=== PATIENT | female | born 1995 | race Caucasian/White ===

== ENCOUNTER → 2016-11-22 | Outpatient (CLI) | payer BC ==
[~2016-11-22] MED LIST: DCS100C PO; HYDR-3454 PO; LUBI8CAP2 PO; NAPR-243 PO; POLY17PO23 PO; RANI75TA30 PO
--- NOTE | 2016-11-22 17:44 | Diagnostic Imaging Report ---
INDICATION: Pelvic pain with positive test. COMPARISON: None available. TECHNIQUE: Transabdominal and transvaginal grayscale and color Doppler imaging of the pelvis was performed. FINDINGS: The uterus measures 7.5 x 3.8 x 4.4 cm. No suspicious myometrial mass. The endometrium is thickened and fairly homogeneous in echogenicity. It measures up to 2 cm. There is no intrauterine gestational sac identified. The right ovary measures 3.2 x 3.0 x 1.9 cm. The left ovary measures 3.0 x 2.7 x 2.0 cm. Blood flow seen in both ovaries by color Doppler and spectral duplex imaging. There is a trace amount of simple-appearing free pelvic fluid. No cystic adnexal mass/paraovarian mass to suggest ectopic . IMPRESSION: 1. No intrauterine /gestational sac. However, a very early gestation could be below the sensitivity of ultrasound at this time. 2. No evidence of ectopic within the pelvis. 3. Recommend correlation with beta hCG levels and if necessary, short-term followup pelvic ultrasound in 2-3 days to reassess for potential gestational sac. Dictated by: Dictated on workstation # [id number]
== END ==
LOC: RAD 16:25
PROVIDERS: ATTEND Nurse Practitioner Family
DX: R10.2 Pelvic and perineal pain (principal)
CPT/HCPCS: 76801; 76817

== ENCOUNTER → 2016-11-28 | Outpatient (CLI) | payer BC ==
--- NOTE | 2016-11-28 18:10 | Diagnostic Imaging Report ---
EXAMINATION: OB ultrasound. INDICATION: Pelvic pain. FINDINGS: The previous OB ultrasound exam performed on 11/22/2016 failed to show any sign of a gestational sac within the uterus. On this exam, there is now a very small hypoechoic area within the endometrium. The measurements of this hypoechoic area would correspond to a roughly 4 week . There is no sign of an embryonic pole. Whether this finding is related to an early live or to a blighted ovum is not certain. Correlation with the patient's beta-hCG levels would be recommended. There is no solid pelvic mass or free fluid collection noted. The ovaries are unremarkable. IMPRESSION: 1. There is now a small hypoechoic area within the endometrium of the uterus. Whether this is related to an early gestational sac or to a blighted ovum is not certain. Recommendations as above. 2. There is no acute pelvic abnormality identified. Dictated by: Dictated on workstation # [id number]
== END ==
LOC: RAD 14:39
PROVIDERS: ATTEND Nurse Practitioner Family
DX: Z32.00 Encounter for pregnancy test, result unknown (principal)
CPT/HCPCS: 76817

== ENCOUNTER → 2017-03-27 | Outpatient (CLI) | payer BC, OTHER ==
[~2017-03-27] MED LIST changes: +DOCU100C37 PO; +Hydrocodone Bit/Acetaminophen PO; +IBUP-1773 PO
--- NOTE | 2017-03-27 14:10 | Diagnostic Imaging Report ---
INDICATION: anatomical survey. TECHNIQUE: Multiple real-time grayscale images were obtained over the gravid uterus. COMPARISON: 11/28/2016. FINDINGS: Transabdominal sonographic evaluation of the gravid uterus was performed. Single live intrauterine at 23 weeks 2 days by today's sonographic measurements. EDC by today's ultrasound is 07/22/2017. presentation is breech. Placenta is located anteriorly. There is questionable low-lying placenta noted at the beginning of the exam with the placental margin 2 cm from the internal cervical os, however, at the end of the exam, the placental edge appeared more than 5 cm away from the cervix. gender is male. There is borderline bilateral renal pelviectasis measuring 0.5 cm bilaterally. Otherwise, the kidneys, bladder, stomach, brain, four-chamber heart, three-vessel cord and insertion, spine, and extremities appear within normal limits. Biometrical measurements are as follows: Biparietal 5.57 cm, age 23 weeks 0 days. Head circumference 21.30 cm, age 23 weeks 3 days. Abdominal circumference 18.22 cm, age 23 weeks 1 days. Femur length 4.10 cm, age 23 weeks 3 days. Sonographic estimate age: 23 weeks 2 days. Sonographic estimated date of delivery: 07-22-17. Estimated Weight: 569 gm (+/- 83 gm). LMP percentile: 98%. heart rate: 155 beats per minute. number: 1 of 1. IMPRESSION: 1. Single live intrauterine at 23 weeks 2 days by sonographic measurements. 2. Borderline bilateral renal pelviectasis of uncertain etiology. Recommend continued sonographic followup. Dictated by: Dictated on workstation # [id number]
== END ==
LOC: RAD 12:02
PROVIDERS: ATTEND Family Medicine
DX: Z34.02 Encounter for supervision of normal first pregnancy, second trimester (principal); Z3A.23 23 weeks gestation of pregnancy
CPT/HCPCS: 76805

== ENCOUNTER → 2017-04-28 | Outpatient (CLI) | payer BC ==
[~2017-04-28] MED LIST changes: -DOCU100C37 PO; -Hydrocodone Bit/Acetaminophen PO; -IBUP-1773 PO
--- NOTE | 2017-04-28 17:51 | Diagnostic Imaging Report ---
INDICATION: Followup of previous dilated renal pelves. COMPARISON: Comparison is made with the previous ultrasound from 03/27/2017. FINDINGS: Based on prior ultrasound, estimated gestational age 27 weeks 6 days. On today's examination, there is appropriate cardiac motion measured at 134 beats per minute. Amniotic fluid volume is normal. The placenta is located anteriorly without evidence of a previa. Dedicated assessment of the renal pelves demonstrates a maximum transverse dimension of the right renal pelvis measured at 3 mm at maximum and the left measured at 2 mm. Otherwise, the limited anatomic assessment on this exam demonstrates no new abnormalities. IMPRESSION: 1. The transverse dimension of the renal pelvis on today's examination is improved bilaterally compared to the prior examination. It now measures 3 mm on the right and 2 mm on the left and was previously 5 mm on the comparison exam. 2. Amniotic fluid volume and cardiac motion remain appropriate. Dictated by: Dictated on workstation # [id number]
== END ==
LOC: RAD 15:11
PROVIDERS: ATTEND Family Medicine
DX: O35.8XX0 Maternal care for other (suspected) fetal abnormality and damage, not applicable or unspecified (principal); Z3A.27 27 weeks gestation of pregnancy
CPT/HCPCS: 76816

== ENCOUNTER 2017-07-24 04:06 | Inpatient (IN) | payer BC ==
[~2017-07-24] VITALS: Ht 162.6 cm; Wt 100.7 kg
[2017-07-24] VITALS (51 sets, daily range): BP systolic 108–139; BP diastolic 52–87
[2017-07-24 05:07] LABS: BILIRUBIN,URINE NEGATIVE (NEGATIVE); KETONES,URINE NEGATIVE (NEGATIVE); LEUKOCYTE ESTERASE ,URINE 1+ (NEGATIVE); NITRITE,URINE NEGATIVE (NEGATIVE); PH,URINE 7 (5-9); PROTEIN,URINE NEGATIVE (NEGATIVE); UROBILINOGEN,URINE 1 MG/DL (NORMAL)
[2017-07-24] MEDS ORDERED: MINERAL OIL CONCENTRATE 99.9% 15 ML UDC TOP PRN (06:00)
[2017-07-24] MEDS: CATHETER FLUSH 10 ML SYR IV SCH ×2 (06:06→21:38)
[2017-07-24] MEDS: D5 LR IV SOLUTION 1,000 ML IV SCH ×2 (06:06→14:00)
[2017-07-24] MEDS ORDERED: BUTORPHANOL INJ 2 MG/ML (STADOL) VIAL IV PRN (06:15)
[2017-07-24 06:18] LABS: BASOPHILS % (AUTO) 0 % (0-10); EOSINOPHILS # (AUTO) 0.1 10^3/uL (0.0-0.3); EOSINOPHILS % (AUTO) 1 % (0-10); LYMPHOCYTES # (AUTO) 1.9 X 10^3 (1.0-4.0); LYMPHOCYTES % (AUTO) 14 % (12-44); MEAN CORPUSCULAR HEMOGLOBIN 30 PG (25-34); MEAN CORPUSCULAR HGB CONC 36 G/DL (32-36); MEAN CORPUSCULAR VOLUME 85 FL (80-99); MEAN PLATELET VOLUME 11.1 FL (7.4-10.4); MONOCYTES # (AUTO) 0.8 X 10^3 (0.0-1.0); MONOCYTES % (AUTO) 6 % (0-12); NEUTROPHILS # (AUTO) 10.6 X 10^3 (1.8-7.8); NEUTROPHILS % (AUTO) 79 % (42-75); PLATELET COUNT 222 10^3/uL (130-400); RED BLOOD COUNT 4.79 10^6/uL (4.35-5.85); RED CELL DISTRIBUTION WIDTH 12.8 % (10.0-14.5); WHITE BLOOD COUNT 13.4 10^3/uL (4.3-11.0)
--- NOTE | 2017-07-24 07:27 | History & Physical-OB ---
OB - Chief Complaint & HPI Date/Time Date of Admission: Date of Admission: Jul 24, 2017 at 05:45 Time Seen by Provider: 07:22 ((H&P documented)) Chief Complaint/History OB-Reason for Admission/Chief: Onset of Labor (LALO) Hx : 1 Hx Para: 0 Expected Date of Delivery: Aug 04, 2017 Gestational Age in Weeks: 38 Gestational Age in Days: 3 History of Labs O+, RI, GBS neg HIV, Hep B, Syphilis - NR 1h GTT negative Allergies and Home Medications Allergies Coded Allergies: No Known Drug Allergies (Unverified , 03/25/14) OB - History Hx of Present Care: Yes Ultrasounds: Normal mid trimester US Abnormal Ultrasound Findings: hx of renal pelviectasis - improved on f/u sono Obstetrical Complications: None Medical Complications: None Information Induced Hypertension: No Maternal Gestational Diabetes: No Hemorrhage: No Obstetrical History Hx : 1 Hx Para: 0 Delivery History Hx Blood Disorders: No Adverse Rxn to Tranfusion: No Patient Past Medical History Asthma IBS GERD PSH: cholecystectomy Social History/Family History HIV/AIDS: No Recent Infectious Disease Expo: No Sexually Transmitted Disease: No Alcohol Use: Denies Use Recreational Drug Use: No Smoking Cessation: Never smoker Immunizations Tetanus Booster (TDap): Less than 5yrs (06/01/17) Date of Influenza Vaccine: Jun 01, 2017 Rubella: immune RPR/VDRL: Negative GBS Status: Negative HBsAG: Negative OB - Admission Exam Physical Exam Abdomen: Gravid Cervical Dilatation: 3cm Accelerations: Accelerations Present (Reassuring FHT) Labs Laboratory Tests Test 07/24/17 04:45 07/24/17 05:55 Range/Units Urine Color YELLOW Urine Clarity CLEAR Urine pH 7 5-9 Urine Specific [place] 1.010 L 1.016-1.022 Urine Protein NEGATIVE NEGATIVE Urine Glucose (UA) NEGATIVE NEGATIVE Urine Ketones NEGATIVE NEGATIVE Urine Nitrite NEGATIVE NEGATIVE Urine Bilirubin NEGATIVE NEGATIVE Urine Urobilinogen 1 NORMAL MG/DL Urine Leukocyte Esterase 1+ H NEGATIVE Urine RBC (Auto) 2+ H NEGATIVE Urine RBC NONE /HPF Urine WBC 2-5 /HPF Urine Squamous Epithelial Cells 10-25 H /HPF Urine Crystals NONE /LPF Urine Bacteria TRACE /HPF Urine Casts NONE /LPF Urine Mucus NEGATIVE /LPF Urine Culture Indicated NO White Blood Count 13.4 H 4.3-11.0 10^3/uL Red Blood Count 4.79 4.35-5.85 10^6/uL Hemoglobin 14.5 11.5-16.0 G/DL Hematocrit 41 35-52 % Mean Corpuscular Volume 85 80-99 FL Mean Corpuscular Hemoglobin 30 25-34 PG Mean Corpuscular Hemoglobin Concent 36 32-36 G/DL Red Cell Distribution Width 12.8 10.0-14.5 % Platelet Count 222 130-400 10^3/uL Mean Platelet Volume 11.1 H 7.4-10.4 FL Neutrophils (%) (Auto) 79 H 42-75 % Lymphocytes (%) (Auto) 14 12-44 % Monocytes (%) (Auto) 6 0-12 % Eosinophils (%) (Auto) 1 0-10 % Basophils (%) (Auto) 0 0-10 % Neutrophils # (Auto) 10.6 H 1.8-7.8 X 10^3 Lymphocytes # (Auto) 1.9 1.0-4.0 X 10^3 Monocytes # (Auto) 0.8 0.0-1.0 X 10^3 Eosinophils # (Auto) 0.1 0.0-0.3 10^3/uL Basophils # (Auto) 0.0 0.0-0.1 10^3/uL OB - Assessment/Plan/Diagnosis Assessment Assessment: active labor (LALO at 38w3d) Plan Plan: Expectant Management MAGDIEL CABA DO Jul 24, 2017 07:27
[2017-07-24] MEDS ORDERED: SUFENTA 0.6MCG/ML BUPIVA 0.125 100 ML ONE (08:20)
[2017-07-24] MEDS ORDERED: fentaNYL INJECTION 100 MCG/2 ML AMP ONE ×2 (08:47→19:57)
[2017-07-24] MEDS ORDERED: BUPIVACAINE 0.25% 30 ML (SENSORCAINE) VIAL ONE (08:47)
[2017-07-24] MEDS ORDERED: LIDOCAINE PF 2% 5 ML (XYLOCAINE) VIAL ONE (08:47)
[2017-07-24] MEDS: EPIDURAL (SUFENTA 0.6MCG/ML BUPIVA 0.125%) 100 ML BAG EPI SCH ×2 (09:00→17:39)
[2017-07-24] MEDS ORDERED: LACTATED RINGERS 1,000 ML IV ONE (10:22)
[2017-07-24] MEDS ORDERED: diphenhydrAMINE 50 MG/ML INJ (BENADRYL) IV PRN (10:30)
[2017-07-24] MEDS ORDERED: NALOXONE 0.4 MG/ML 1 ML (NARCAN) VIAL IV PRN (10:30)
[2017-07-24] MEDS ORDERED: CATHETER FLUSH 10 ML SYR IV PRN (10:30)
[2017-07-24] MEDS ORDERED: ONDANSETRON 4 MG/2 ML (SDV) Z0FRAN IV PRN (10:30)
[2017-07-24] MEDS ORDERED: OXYTOCIN/NORMAL SALINE 500 ML IV ONE (17:20)
[2017-07-24] MEDS ORDERED: OXYTOCIN/NORMAL SALINE 500 ML IV SCH (17:38)
[2017-07-24] MEDS ORDERED: METOCLOPRAMIDE INJ 10 MG/2 ML (REGLAN) ONE (19:15)
[2017-07-24] MEDS ORDERED: FAMOTIDINE 20MG/2ML IV (PEPCID) ONE (19:16)
[2017-07-24] MEDS ORDERED: CITRIC ACID/SOB CIT (BICITRA) 30 ML UDC ONE (19:16)
[2017-07-24] MEDS ORDERED: NS (IVPB) 50 ML ONE ×2 (19:23→19:31)
[2017-07-24] MEDS ORDERED: AMPICILLIN 2000 MG INJECTION (IM/IV) ONE (19:23)
[2017-07-24] MEDS ORDERED: LACTATED RINGERS 1,000 ML IV PRN (19:29)
[2017-07-24] MEDS ORDERED: CITRIC ACID/SOB CIT (BICITRA) 30 ML UDC PO ONE (19:30)
[2017-07-24] MEDS ORDERED: AMPICILLIN INJECTION 2,000 MG in NS (IVPB) 50 ML IV SCH (19:30)
[2017-07-24] MEDS ORDERED: FAMOTIDINE 20MG/2ML IV (PEPCID) IV ONE (19:30)
[2017-07-24] MEDS ORDERED: GENTAMICIN 40 MG/ML 2 ML INJ SDV IV SCH (19:30)
[2017-07-24] MEDS ORDERED: METOCLOPRAMIDE INJ 10 MG/2 ML (REGLAN) IV ONE (19:30)
[2017-07-24] MEDS ORDERED: CLINDAMYCIN INJECTION 900 MG in NS (IVPB) 50 ML IV NR (19:30)
[2017-07-24] MEDS ORDERED: CLINDAMYCIN 900 MG/6ML (CLEOCIN) VIAL ONE (19:31)
--- NOTE | 2017-07-24 19:36 | Labor Progress Note ---
Labor Progress Note Labor Progress Note Date Seen by Provider: Jul 24, 2017 Time Seen by Provider: 18:50 Subjective: Pt denies complaints. Objective: Cervical exam: /0 heart tones: 140 beats per minute, moderate variability, variable and early decels Tocometer: 2-4 ctx/10 minutes Assessment/Plan: Maxx Zamora is a 22 /Para 1 / 0,Gestational Age (wks)38 here in spontaneous labor with protracted labor (4 cm change in 14 hours), now with minimal cervical change, variable decelerations, increasing caput without station, cervical swelling leading to suspicion of cephalopelvic disproportion or asynclitic presentation. Discussed with patient and her family and Dr. Dueñas and plan to proceed with when crew ready. Temperature 101, does not meet full criteria for intrauterine infection at this time, but will give amp/gent/clindamycin for possible developing IUI. Vitals - Labs Vital Signs - I&O Vital Signs Date Time Temp Pulse Resp B/P (MAP) Pulse Ox O2 Delivery O2 Flow Rate FiO2 07/24/17 19:00 74 18 131/62 100 Non Rebreather 100.00 07/24/17 18:45 81 18 128/78 100 Non Rebreather 100.00 07/24/17 18:30 88 18 136/80 100 Non Rebreather 100.00 07/24/17 18:15 88 18 136/80 100 Non Rebreather 100.00 07/24/17 18:00 99.7 70 18 113/55 100 Room Air 07/24/17 17:45 74 18 116/58 100 Room Air 07/24/17 17:30 72 18 113/57 100 Room Air 07/24/17 17:15 100.3 73 18 117/55 100 Room Air 07/24/17 17:00 83 18 112/59 100 Room Air 07/24/17 16:45 99.8 84 18 119/55 100 Room Air 07/24/17 16:30 99.0 75 18 133/75 99 Room Air 07/24/17 16:15 87 18 100 Room Air 07/24/17 16:00 87 18 100 Room Air 07/24/17 15:45 90 18 135/63 100 Room Air 07/24/17 15:30 72 18 110/64 100 Room Air 07/24/17 15:15 68 18 112/57 97 Room Air 07/24/17 15:00 71 18 116/56 98 Room Air 07/24/17 14:45 67 18 100 Room Air 07/24/17 14:30 65 18 108/56 100 Room Air 07/24/17 14:15 79 18 133/67 99 Room Air 07/24/17 14:00 91 18 128/64 97 Room Air 07/24/17 13:45 85 18 135/63 100 Room Air 07/24/17 13:30 81 18 123/61 99 Room Air 07/24/17 13:15 65 18 129/57 100 Room Air 07/24/17 13:00 65 18 119/59 100 Room Air 07/24/17 12:45 68 18 126/62 100 Room Air 07/24/17 12:30 68 18 126/62 100 Room Air 07/24/17 12:15 65 18 120/62 100 Room Air 07/24/17 12:00 98.1 18 99 Room Air 07/24/17 11:45 64 18 116/56 98 Room Air 07/24/17 11:30 63 18 116/57 98 Room Air 07/24/17 11:15 62 18 114/55 98 Room Air 07/24/17 11:00 71 18 123/64 99 Room Air 07/24/17 10:45 75 18 112/54 98 Room Air 07/24/17 10:30 93 18 112/54 100 Room Air 07/24/17 10:15 60 18 124/58 100 Non Rebreather 10.00 07/24/17 10:00 66 18 112/55 100 Non Rebreather 10.00 07/24/17 09:47 73 18 111/52 100 07/24/17 09:45 74 18 123/60 100 Non Rebreather 10.00 07/24/17 09:43 74 18 123/65 100 07/24/17 09:37 78 18 127/59 100 07/24/17 09:34 78 18 118/57 98 07/24/17 09:30 82 18 129/60 98 Room Air 07/24/17 09:26 81 18 116/57 100 Room Air 07/24/17 09:23 78 18 113/57 100 Room Air 07/24/17 09:19 84 18 111/58 100 Room Air 07/24/17 09:16 88 18 129/75 100 Room Air 07/24/17 09:13 95 18 122/63 100 Room Air 07/24/17 09:10 83 18 134/73 98 Room Air 07/24/17 07:30 97.8 84 20 137/77 07/24/17 04:22 98.7 94 18 127/75 I & O 07/25/17 07:00 Intake Total 2000 ml Balance 2000 ml Labs Laboratory Tests 07/24/17 04:45: Urine Color YELLOW, Urine Clarity CLEAR, Urine pH 7, Urine Specific [place] 1.010L, Urine Protein NEGATIVE, Urine Glucose (UA) NEGATIVE, Urine Ketones NEGATIVE, Urine Nitrite NEGATIVE, Urine Bilirubin NEGATIVE, Urine Urobilinogen 1 , Urine Leukocyte Esterase 1+H, Urine RBC (Auto) 2+H, Urine RBC NONE, Urine WBC 2-5, Urine Squamous Epithelial Cells 10-25H, Urine Crystals NONE, Urine Bacteria TRACE, Urine Casts NONE, Urine Mucus NEGATIVE, Urine Culture Indicated NO 07/24/17 05:55: White Blood Count 13.4H, Red Blood Count 4.79, Hemoglobin 14.5, Hematocrit 41, Mean Corpuscular Volume 85, Mean Corpuscular Hemoglobin 30, Mean Corpuscular Hemoglobin Concent 36, Red Cell Distribution Width 12.8, Platelet Count 222, Mean Platelet Volume 11.1H, Neutrophils (%) (Auto) 79H, Lymphocytes (%) (Auto) 14, Monocytes (%) (Auto) 6, Eosinophils (%) (Auto) 1, Basophils (%) (Auto) 0, Neutrophils # (Auto) 10.6H, Lymphocytes # (Auto) 1.9, Monocytes # (Auto) 0.8, Eosinophils # (Auto) 0.1, Basophils # (Auto) 0.0 LINDSEY HERNANDEZ MD Jul 24, 2017 7:36 pm
[2017-07-24] MEDS ORDERED: TERBUTALINE INJ 1 MG/ML (BRETHINE) AMP ONE (19:41)
--- NOTE | 2017-07-24 19:56 | Progress Note-Standard ---
Standard Progress Note Progress Notes/Assess & Plan Date Seen by Provider: Jul 24, 2017 Time Seen by Provider: 07:40 Progress/Assessment & Plan this 22-year-old female presented yesterday morning approximately 3 a.m. and found to be in active labor. The patient progressed throughout the day to 8 cm, however station remained high. Throughout her labor course today rupture of membranes occurred and her labor was augmented with Pitocin. She received an epidural for pain management which worked initially however, when evaluating the patient for the first time today she is hurting significantly with contractions. I was contacted prior to my arrival due to heart rate decelerations, due to failure to progress, and suspected underlying cephalopelvic disproportion along with heart rate decelerations consultation was made for operative delivery. upon my arrival maternal fever was noted. She was dosed with ampicillin, gentamicin, and clindamycin. I was able to discuss the procedure with the patient's family, she was not very responsive to my discussion with her due to the amount of discomfort she was having. Risks, versus alternative of continuing to wait for delivery was reviewed with the patient's family and the patient. They had no questions for me, consent is obtained and the patient will be taken the operating room as soon as or staff is available and ready AZIZA SOLORZANO DO Jul 24, 2017 7:56 pm
[2017-07-24] MEDS ORDERED: GENTAMICIN IV NR ×2 (20:00)
[2017-07-24] MEDS ORDERED: NS IV NR ×2 (20:00)
[2017-07-24] MEDS ORDERED: OXYTOCIN/NORMAL SALINE 1,000 ML IV ONE (20:02)
[2017-07-24] MEDS ORDERED: KETOROLAC 30 MG/ML VIAL ONE ×2 (20:51→20:52)
[2017-07-24] MEDS ORDERED: TETANUS,DIPTH,PERTUSS P/F (BOOSTRIX) 0.5 ML VIAL IM SCH (21:15)
[2017-07-24] MEDS ORDERED: MEASLES,MUMPS,RUBELLA 1 EA INJ SC SCH (21:15)
[2017-07-24] MEDS ORDERED: ONDANSETRON 4 MG/2 ML (SDV) Z0FRAN IVP PRN (21:15)
[2017-07-24] MEDS ORDERED: HYDROmorphone (DILAUDID) 2 MG/ML VIAL IVP PRN (21:15)
--- NOTE | 2017-07-24 21:28 | Discharge Inst-Women's Service ---
Discharge Inst-Women's Serv Depart Medication/Instructions New, Converted or Re-Newed RX: RX on Chart Consults/Follow Up Additional Follow Up: Yes Orders/Referrals Dr. Dueñas in 7-10 days, Dr. Voss in 6 weeks Activity Activity: Activity as Tolerated Driving Instructions: No Driving for 1 Week NO SMOKING: NO SMOKING Nothing Inside Vagina: No Douching, No [place], No Tampons Diet Discharge Diet: No Restrictions Symptoms to Report to : Bleeding Excessive, Pain Increased, Fever Over 101 Degrees F, Vaginal Bleeding Increase, Questions/Concerns For Any Problems or Questions: Contact Your Physician Skin/Wound Care Infection Signs and Symptoms: Increased Redness, Foul Odor of Wound, Increased Drainage, Skin Itchy or Has a Rash, Increased Swelling, Temperature Above 101 F Operative Area Clean and Dry: Keep Incision Clean/Dry Stitches/[place]/Dermabond: Dermabond, Care of Stitches Bathing Instructions: AZIZA Enrique DO Jul 24, 2017 9:28 pm
[2017-07-24] MEDS ORDERED: DOCU100C37 PO (21:30)
[2017-07-24] MEDS ORDERED: Hydrocodone Bit/Acetaminophen PO (21:30)
[2017-07-24] MEDS ORDERED: IBUP-1773 PO (21:30)
[2017-07-24] MEDS ORDERED: TERBUTALINE INJ 1 MG/ML (BRETHINE) AMP SC ONE (21:45)
[2017-07-24] MEDS ORDERED: CATHETER FLUSH 10 ML SYR IV SCH (22:00)
[2017-07-24] MEDS ORDERED: METHYLERGONOVINE 0.2 MG/ML (METHERGINE) AMP IM ONE ×2 (22:01→22:15)
[2017-07-24] MEDS: OXYTOCIN/NORMAL SALINE 500 ML IV SCH (22:30)
[2017-07-24] MEDS ORDERED: FLUTICASONE NASAL SPRAY (FLONASE) 16 GM BTL NS ONE (23:41)
[2017-07-24] MEDS: KETOROLAC 30 MG/ML VIAL IVP SCH (23:56)
[2017-07-25] MEDS: D5 LR IV SOLUTION 1,000 ML IV SCH (02:07)
[2017-07-25] MEDS ORDERED: LACTATED RINGERS 1,000 ML IV PRN (02:15)
[2017-07-25] MEDS: OXYTOCIN/NORMAL SALINE 500 ML IV SCH (02:37)
[2017-07-25] MEDS: HYDROcodone/APAP 5 MG/325 MG (LORTAB) TAB PO PRN ×5 (02:37→23:14)
[2017-07-25] MEDS: IBUPROFEN 600 MG (MOTRIN) TAB PO SCH ×5 (03:34→23:13)
[2017-07-25 04:35] VITALS: BP 123/85
--- NOTE | 2017-07-25 04:46 | OPERATIVE REPORT ---
DATE OF SERVICE: PREOPERATIVE DIAGNOSES: 1. A 22-year-old G1, P0 at 38 weeks gestation. 2. Cephalopelvic disproportion. 3. Maternal fever. 4. heart rate decelerations. POSTOPERATIVE DIAGNOSES: 1. A 22-year-old G1, P0 at 38 weeks gestation. 2. Cephalopelvic disproportion. 3. Maternal fever. 4. heart rate decelerations. 5. Occiput posterior. PROCEDURE: Primary low transverse section. SURGEON: Dr. Wade Dueñas. ANESTHESIA: Spinal. EBL: 850 mL. FLUIDS: 1400 mL of lactated Ringer solution. URINE OUTPUT: 50 mL slightly blood tinged at the end of procedure. FINDINGS: A live male infant weighing 8 pounds 6 ounces, Apgars of 8 and 9. Grossly normal appearing uterus, bilateral fallopian tubes and ovaries. INDICATIONS FOR PROCEDURE: This 22-year-old female was admitted by family practice physicians, Dr. Calles and Dr. Voss, who are managing her care through the [facility]. I was consulted after the patient had been admitted in labor throughout the day, progressed to 8 to 9 cm dilatation, but was still -1 to -2 station. The reason I was consulted was due to heart tone concerns of repetitive variable and prolonged decelerations. By the time I presented to evaluate the patient, these had resolved and the heart rate tracing was reassuring. However, the patient continued to have regular contractions on her own despite stopping the Pitocin augmentation. She was reevaluated by myself and the fetus presenting vertex palpated to be occiput posterior; however, was still fairly high in the pelvis. There was also a documented maternal temperature that qualified as a fever. Due to maternal temperature, I discussed with the patient, my concerns with the head fitting through the pelvis as there was a large amount of caput as also recognized on evaluation. I discussed with her a prolonged pushing timeframe as well as if the fetus was going to be able to tolerate the pushing. This was discussed with her and family present. I discussed with her also proceeding with an emergent operative delivery. Risk of this procedure were discussed with the patient in detail, consent was obtained as the patient opted to proceed with . OPERATIVE REPORT IN DETAIL: Once in the operating room, spinal anesthesia was found to be adequate. She was placed in supine position with leftward tilt, prepped and draped in normal sterile fashion. After a time out was performed and anesthesia was tested, a Pfannenstiel skin incision was made with a knife and carried down the underlying fascia using Bovie cautery and Pfannenstiel incision, extended laterally using Bovie cautery. Superior edge of the fascial incision was then grasped with Vicenta clamps, tented up and dissected off the underlying rectus muscles. The inferior aspect of the fascial incision was then grasped with Vicenta clamps, tented up and dissected off the underlying rectus muscles. Rectus muscles were dissected down the midline using Lawson scissors, which exposed the peritoneum, which entered bluntly. I then extended the peritoneal incision using blunt traction. An Te ring retractor was placed into the peritoneal incision, which offered excellent lateral sidewall retraction. I then proceeded with making a low transverse incision to the vesicouterine peritoneum and bluntly dissecting this off the lower uterine segment. I proceeded with my myotomy until the membranes were visualized at which point a thin uterine incision using blunt traction. The infant was found in the vertex presentation, occiput posterior. The infant's head was elevated up the incision with gentle pressure fundal pressure and infant's head was delivered through the incision, where it is bulb suctioned both nares and oropharynx. Anterior and posterior shoulders were then delivered. The infant is now is then brought into the operative field with the cord was doubly clamped and cut and handed off to Dr. Voss, who was present for evaluation note on delivery. Cord blood was collected. Three-vessel cord with intact placenta was delivered spontaneously thereafter. IV Pitocin was initiated to facilitate uterine contraction. Uterine fundus became firmer with bimanual massage. The uterus was then exteriorized and cleared off all endometrial clots and debris. I then proceeded with closing the uterus using 0 Vicryl suture in a running locking fashion. Second layer of imbricating 0 Monocryl was placed. Excellent hemostasis was noted after doing this. I then evaluated the rest of the uterus, fallopian tubes and ovaries, which all appeared grossly normal. I placed these back into the pelvis and copiously irrigated the pelvis using normal saline. Once again, there was no active bleeding noted from any of my dissection planes. I then placed Interceed anti-adhesion over my low transverse incision. I proceeded with closing the peritoneum using 2-0 Vicryl suture in running fashion. The rectus muscle was reapproximated using 2-0 Vicryl suture in a [id number] fashion. The fascia was reapproximated using 0 Vicryl suture in a running fashion. The subcutaneous tissue was reapproximated using 3-0 plain in an interrupted subcutaneous stitch and skin reapproximated using 4-0 Monocryl in a running subcuticular. Dermabond was applied to the incision and a sterile dressing with adhesive white tape. The patient tolerated the procedure well, sent to recovery in stable condition. Lap and sponge counts were correct at the end of the procedure. Instrument counts were correct as well. A 900 mg of clindamycin given preoperatively for infection prophylaxis as well as a dosing of ampicillin and gentamicin with the maternal temperature. Job ID: [id number] DocumentID: [id number] Dictated Date: 07/24/2017 21:23:21 Director Of Community Education Date: 07/25/2017 04:45:30 Dictated By: DO ARGENIS HANKS
[2017-07-25] MEDS: KETOROLAC 30 MG/ML VIAL IVP SCH ×3 (06:23→17:53)
[2017-07-25 06:25] LABS: BASOPHILS % (AUTO) 0 % (0-10); EOSINOPHILS % (AUTO) 0 % (0-10); LYMPHOCYTES # (AUTO) 1.2 X 10^3 (1.0-4.0); LYMPHOCYTES % (AUTO) 9 % (12-44); MEAN CORPUSCULAR HEMOGLOBIN 30 PG (25-34); MEAN CORPUSCULAR HGB CONC 35 G/DL (32-36); MEAN CORPUSCULAR VOLUME 86 FL (80-99); MEAN PLATELET VOLUME 10.5 FL (7.4-10.4); MONOCYTES # (AUTO) 0.9 X 10^3 (0.0-1.0); MONOCYTES % (AUTO) 6 % (0-12); NEUTROPHILS # (AUTO) 12.1 X 10^3 (1.8-7.8); NEUTROPHILS % (AUTO) 85 % (42-75); PLATELET COUNT 168 10^3/uL (130-400); RED BLOOD COUNT 4.22 10^6/uL (4.35-5.85); RED CELL DISTRIBUTION WIDTH 12.4 % (10.0-14.5); WHITE BLOOD COUNT 14.3 10^3/uL (4.3-11.0)
[2017-07-25 07:50] VITALS: BP 122/78
[2017-07-25] MEDS: FLUTICASONE NASAL SPRAY (FLONASE) 16 GM BTL NS SCH (07:51)
[2017-07-25] MEDS: DOCUSATE SODIUM 100 MG (COLACE) CAP PO SCH ×2 (07:51→20:41)
--- NOTE | 2017-07-25 08:39 | Progress Note-Standard ---
Standard Progress Note Progress Notes/Assess & Plan Date Seen by Provider: Jul 25, 2017 Time Seen by Provider: 08:15 Progress/Assessment & Plan Patient doing well POD 1 PLTCS. Reports pain is fairly well controlled. Ambulating and voiding freely. Lochia min-light. Tolerating regular diet. Denies fever/chills Vital Sign - Last 24 Hours 07/24/17 07/24/17 07/24/17 07/24/17 09:10 09:13 09:16 09:19 Pulse 83 95 88 84 Resp 18 18 18 18 B/P (MAP) 134/73 122/63 129/75 111/58 Pulse Ox 98 100 100 100 O2 Delivery Room Air Room Air Room Air Room Air 07/24/17 07/24/17 07/24/17 07/24/17 09:23 09:26 09:30 09:34 Pulse 78 81 82 78 Resp 18 18 18 18 B/P (MAP) 113/57 116/57 129/60 118/57 Pulse Ox 100 100 98 98 O2 Delivery Room Air Room Air Room Air 07/24/17 07/24/17 07/24/17 07/24/17 09:37 09:43 09:45 09:47 Pulse 78 74 74 73 Resp 18 18 18 18 B/P (MAP) 127/59 123/65 123/60 111/52 Pulse Ox 100 100 100 100 O2 Delivery Non Rebreather O2 Flow Rate 10.00 07/24/17 07/24/17 07/24/17 07/24/17 10:00 10:15 10:30 10:45 Pulse 66 60 93 75 Resp 18 18 18 18 B/P (MAP) 112/55 124/58 112/54 112/54 Pulse Ox 100 100 100 98 O2 Delivery Non Rebreather Non Rebreather Room Air Room Air O2 Flow Rate 10.00 10.00 07/24/17 07/24/17 07/24/17 07/24/17 11:00 11:15 11:30 11:45 Pulse 71 62 63 64 Resp 18 18 18 18 B/P (MAP) 123/64 114/55 116/57 116/56 Pulse Ox 99 98 98 98 O2 Delivery Room Air Room Air Room Air Room Air 07/24/17 07/24/17 07/24/17 07/24/17 12:00 12:15 12:30 12:45 Temp 98.1 Pulse 65 68 68 Resp 18 18 18 18 B/P (MAP) 120/62 126/62 126/62 Pulse Ox 99 100 100 100 O2 Delivery Room Air Room Air Room Air Room Air 07/24/17 07/24/17 07/24/17 07/24/17 13:00 13:15 13:30 13:45 Pulse 65 65 81 85 Resp 18 18 18 18 B/P (MAP) 119/59 129/57 123/61 135/63 Pulse Ox 100 100 99 100 O2 Delivery Room Air Room Air Room Air Room Air 07/24/17 07/24/17 07/24/17 07/24/17 14:00 14:15 14:30 14:45 Pulse 91 79 65 67 Resp 18 18 18 18 B/P (MAP) 128/64 133/67 108/56 Pulse Ox 97 99 100 100 O2 Delivery Room Air Room Air Room Air Room Air 07/24/17 07/24/17 07/24/17 07/24/17 15:00 15:15 15:30 15:45 Pulse 71 68 72 90 Resp 18 18 18 18 B/P (MAP) 116/56 112/57 110/64 135/63 Pulse Ox 98 97 100 100 O2 Delivery Room Air Room Air Room Air Room Air 07/24/17 07/24/17 07/24/17 07/24/17 16:00 16:15 16:30 16:45 Temp 99.0 99.8 Pulse 87 87 75 84 Resp 18 18 18 18 B/P (MAP) 133/75 119/55 Pulse Ox 100 100 99 100 O2 Delivery Room Air Room Air Room Air Room Air 07/24/17 07/24/17 07/24/17 07/24/17 17:00 17:15 17:30 17:45 Temp 100.3 Pulse 83 73 72 74 Resp 18 18 18 18 B/P (MAP) 112/59 117/55 113/57 116/58 Pulse Ox 100 100 100 100 O2 Delivery Room Air Room Air Room Air Room Air 07/24/17 07/24/17 07/24/17 07/24/17 18:00 18:15 18:30 18:45 Temp 99.7 Pulse 70 88 88 81 Resp 18 18 18 18 B/P (MAP) 113/55 136/80 136/80 128/78 Pulse Ox 100 100 100 100 O2 Delivery Room Air Non Rebreather Non Rebreather Non Rebreather O2 Flow Rate 100.00 100.00 100.00 07/24/17 07/24/17 07/24/17 07/24/17 19:00 19:15 19:30 20:00 Temp 101.3 100.8 Pulse 74 86 100 96 Resp 18 18 18 18 B/P (MAP) 131/62 136/70 139/87 131/63 Pulse Ox 100 100 100 100 O2 Delivery Non Rebreather Non Rebreather Non Rebreather Room Air O2 Flow Rate 100.00 10.00 10.00 07/24/17 07/25/17 07/25/17 23:56 04:35 07:50 Temp 97.6 97.9 97.0 Pulse 83 72 81 Resp 18 18 18 B/P (MAP) 132/73 123/85 122/78 Pulse Ox 96 96 96 O2 Delivery Room Air Room Air Room Air Incision: c/d/i Laboratory Tests Test 07/25/17 06:10 Range/Units White Blood Count 14.3 H 4.3-11.0 10^3/uL Red Blood Count 4.22 L 4.35-5.85 10^6/uL Hemoglobin 12.6 11.5-16.0 G/DL Hematocrit 36 35-52 % Mean Corpuscular Volume 86 80-99 FL Mean Corpuscular Hemoglobin 30 25-34 PG Mean Corpuscular Hemoglobin Concent 35 32-36 G/DL Red Cell Distribution Width 12.4 10.0-14.5 % Platelet Count 168 130-400 10^3/uL Mean Platelet Volume 10.5 H 7.4-10.4 FL Neutrophils (%) (Auto) 85 H 42-75 % Lymphocytes (%) (Auto) 9 L 12-44 % Monocytes (%) (Auto) 6 0-12 % Eosinophils (%) (Auto) 0 0-10 % Basophils (%) (Auto) 0 0-10 % Neutrophils # (Auto) 12.1 H 1.8-7.8 X 10^3 Lymphocytes # (Auto) 1.2 1.0-4.0 X 10^3 Monocytes # (Auto) 0.9 0.0-1.0 X 10^3 Eosinophils # (Auto) 0.0 0.0-0.3 10^3/uL Basophils # (Auto) 0.0 0.0-0.1 10^3/uL Diagnosis: POD 1 PLTCS- CPD P: Continue routine PO care Encourage ambulation and IS use Anticipate dc tomorrow pending progression AZIZA SOLORZANO DO Jul 25, 2017 8:38 am
[2017-07-25 12:08] VITALS: BP 129/73
[2017-07-25] MEDS: CATHETER FLUSH 10 ML SYR IV SCH ×3 (12:13→14:04)
--- NOTE | 2017-07-25 15:19 | Anesthesia-Regional Post-Op ---
Regional Patient Condition Mental Status: Alert, Oriented x3 Circulation: Same as Pre-Op Headache: Absent Sensation: Full Recovery Motor Block: Absent Post Op Complications Complications None Follow Up Care/Instructions Patient Instructions None needed. Anesthesia/Patient Condition Patient is doing well, stable vital signs, no apparent adverse anesthesia problems. She states epidural was not working well towards the end of labor so the epidural was pulled and a spinal block done by German Benitez for her C/S. Ambulating well. ERIN OROURKE DO Jul 25, 2017 15:19
[2017-07-25 16:55] VITALS: BP 119/80
[2017-07-25 20:45] VITALS: BP 117/77
[2017-07-25 23:14] VITALS: BP 114/63
[2017-07-26 06:34] VITALS: BP 136/85
[2017-07-26] MEDS: IBUPROFEN 600 MG (MOTRIN) TAB PO SCH ×3 (06:34→17:59)
--- NOTE | 2017-07-26 08:33 | Progress Note-Standard ---
Standard Progress Note Progress Notes/Assess & Plan Date Seen by Provider: Jul 26, 2017 Time Seen by Provider: 08:30 Progress/Assessment & Plan Patient doing well POD 2 PLTCS. Reports pain is fairly well controlled. Ambulating and voiding freely. Lochia min-light. Tolerating regular diet. Denies fever/chills Vital Sign - Last 24 Hours 07/25/17 07/25/17 07/25/17 07/25/17 12:08 16:55 20:45 23:14 Temp 97.0 97.8 96.6 96.6 Pulse 87 76 98 75 Resp 16 16 18 18 B/P (MAP) 129/73 119/80 117/77 114/63 Pulse Ox 97 98 98 97 O2 Delivery Room Air Room Air Room Air Room Air 07/26/17 06:34 Temp 97.7 Pulse 95 Resp 18 B/P (MAP) 136/85 Pulse Ox 97 O2 Delivery Room Air Incision: c/d/i Diagnosis: POD 2 PLTCS- CPD P: Continue routine PO care Encourage ambulation and IS use Anticipate dc today pending infant release AZIZA SOLORZANO DO Jul 26, 2017 08:33
[2017-07-26] MEDS: DOCUSATE SODIUM 100 MG (COLACE) CAP PO SCH ×2 (08:39→20:24)
[2017-07-26 11:53] VITALS: BP 128/78
[2017-07-26] MEDS: FLUTICASONE NASAL SPRAY (FLONASE) 16 GM BTL NS SCH (11:55)
[2017-07-26 17:57] VITALS: BP 118/79
[2017-07-26] MEDS: HYDROcodone/APAP 5 MG/325 MG (LORTAB) TAB PO PRN (18:49)
[2017-07-26 21:30] VITALS: BP 115/71
[2017-07-27] MEDS: HYDROcodone/APAP 5 MG/325 MG (LORTAB) TAB PO PRN (00:43)
[2017-07-27] MEDS: IBUPROFEN 600 MG (MOTRIN) TAB PO SCH ×3 (00:44→11:53)
[2017-07-27 03:59] VITALS: BP 120/73
[2017-07-27] MEDS: DOCUSATE SODIUM 100 MG (COLACE) CAP PO SCH (07:50)
[2017-07-27] MEDS: FLUTICASONE NASAL SPRAY (FLONASE) 16 GM BTL NS SCH (07:51)
[2017-07-27 08:36] VITALS: BP 117/76
--- NOTE | 2017-07-27 10:26 | Postpartum Progress Note ---
Post Op Post-operative Day #3 Subjective: Patient is without complaints. Ambulating, voiding after hand removed. Tolerating a regular diet without nausea or vomiting. Normal lochia. Pain is well controlled with oral pain medications. Passing flatus. breast feeding. Baby discharged today. Objective: Vital Signs 07/24/17 07/27/17 19:30 08:36 Temp 97.4 Pulse 78 Resp 18 B/P (MAP) 117/76 Pulse Ox 97 O2 Delivery Room Air O2 Flow Rate 10.00 Intake and Output 07/28/17 00:00 Intake Total 700 ml Output Total 1500 ml Balance -800 ml Intake Oral 700 ml Output Urine Total 1500 ml Physical Exam: General - Alert and oriented, no apparent distress Abdomen - Soft, appropriately tender to palpation, non-distended, fundus firm at umbilicus Incision - clean, dry and intact; no erythema or induration, no drainage Extremities - no edema, negative Delfino's bilaterally Assessment: 1. post-operative day # 3, status post PLTCS. Recovering well, hemodynamically stable Plan: Routine post-operative care. Encourage breast feeding. Encourage ambulation. VTE prophylaxis: SCDs. Ferrous sulfate supplementation. Plan for discharge today. Instructions per Dr. Dueñas Vitals - Labs Vital Signs - I&O Vital Signs Date Time Temp Pulse Resp B/P (MAP) Pulse Ox O2 Delivery O2 Flow Rate FiO2 07/27/17 08:36 97.4 78 18 117/76 97 Room Air 07/27/17 03:59 97.7 70 18 120/73 98 07/26/17 21:30 97.3 76 18 115/71 98 07/26/17 17:57 98.2 90 18 118/79 100 Room Air 07/26/17 11:53 97.4 86 18 128/78 97 Room Air COREY BRAVO DO Jul 27, 2017 10:26 am
== END 2017-07-27 12:55 | disposition home or self-care (01) | DRG 765 ==
LOC: LDRP 04:06 → WSo 04:06 → LDRP 05:45 → WSo 05:45 → LDRP 10:38 → 3RD 10:38 → WS 22:15
PROVIDERS: ADMIT Family Medicine; ATTEND Family Medicine
PROC: 10D00Z1 Extraction of Products of Conception, Low, Open Approach (ICD-10-PCS; principal; 2017-07-24 20:12)
DX: O65.4 Obstructed labor due to fetopelvic disproportion, unspecified (principal); O76 Abnormality in fetal heart rate and rhythm complicating labor and delivery; O75.2 Pyrexia during labor, not elsewhere classified; O64.0XX0 Obstructed labor due to incomplete rotation of fetal head, not applicable or unspecified; O66.40 Failed trial of labor, unspecified; Z3A.38 38 weeks gestation of pregnancy; Z37.0 Single live birth
CPT/HCPCS: 36415; 81000; 85025; 86850; 86900; 86901; 94664; 99212

== ENCOUNTER → 2018-04-16 | Outpatient (CLI) | payer BC, MEDICAID, OTHER ==
[~2018-04-16] MED LIST changes: +DOCU100C37 PO; +Hydrocodone Bit/Acetaminophen PO; +IBUP-1773 PO
--- NOTE | 2018-04-16 16:20 | Diagnostic Imaging Report ---
PROCEDURE: US OB SINGLE FETUS <14 WKS. TECHNIQUE: Multiple real-time grayscale images were obtained over the gravid uterus in various projections. INDICATION: dating. FINDINGS: There is an intrauterine gestational sac containing a pole. [place]-rump length measurement is 20 mm consistent with 8 weeks 5 days gestation. heart rate was recorded at 167 beats per minute. No perigestational sac hemorrhage is detected. Gestational sac shape is within normal limits. The ovaries were not visualized due to overlying bowel gas. IMPRESSION: Single live IUP 8 weeks 5 days gestational age. Estimated date of confinement sonographically is 11/21/2018. Dictated by: Dictated on workstation # [id number]
== END ==
LOC: RAD 15:08
PROVIDERS: ATTEND Family Medicine
DX: Z34.81 Encounter for supervision of other normal pregnancy, first trimester (principal); Z3A.08 8 weeks gestation of pregnancy
CPT/HCPCS: 76801

== ENCOUNTER → 2018-06-26 | Outpatient (CLI) | payer SELFPAY ==
--- NOTE | 2018-06-26 16:36 | Diagnostic Imaging Report ---
INDICATION: survey. TECHNIQUE: Multiple real-time grayscale images were obtained over the gravid uterus. COMPARISON: 04/16/2018. FINDINGS: There is a single live fetus in a cephalic presentation. heart rate was recorded at 138 beats per minute. The placenta is posterior. The amniotic fluid volume is normal. Cervical length is 4.1 cm. survey demonstrates kidneys, bladder, and stomach to be unremarkable. The brain is unremarkable. There is a four-chamber heart. There is a three-vessel cord with normal insertion. The spine is unremarkable. Maternal adnexa was not evaluated. Biometrical measurements are as follows: Biparietal 4.46 cm, age 19 weeks 4 days. Head circumference 16.68 cm, age 19 weeks 3 days. Abdominal circumference 14.01 cm, age 19 weeks 3 days. Femur length 3.12 cm, age 19 weeks 5 days. Sonographic estimate age: 19 weeks 4 days. Sonographic estimated date of delivery: 11/16/18. Estimated Weight: 297 gm (+/- 43 gm). LMP percentile: 83%. heart rate: 138 beats per minute. number: 1 of 1. IMPRESSION: Single live IUP at 19 weeks 4 days gestational age showing normal interval growth when compared with prior exam from 04/16/2018. No abnormality is detected. Dictated by: Dictated on workstation # [id number]
== END ==
LOC: RAD 15:32
PROVIDERS: ATTEND Family Medicine
DX: Z36.89 Encounter for other specified antenatal screening (principal); Z3A.19 19 weeks gestation of pregnancy
CPT/HCPCS: 76805

== ENCOUNTER → 2018-10-06 | Emergency (ER) | payer MEDICAID, OTHER ==
[~2018-10-06] VITALS: Ht 162.6 cm; Wt 86.2 kg
[~2018-10-06] MED LIST changes: +AMOX500C2 PO; +AMOXICILLIN 500 MG (POLYMOX) CAP PO STA; +RX-HYDROCODONE/APAP 5/325 MG #4 TAB PK PO PRN
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
[2018-10-06 20:21] VITALS: BP 136/78
== END | disposition home or self-care (01) ==
LOC: EDUNIT# 18:25 → ER 18:27
DX: O26.893 Other specified pregnancy related conditions, third trimester (principal); K08.89 Other specified disorders of teeth and supporting structures; Z87.19 Personal history of other diseases of the digestive system; Z3A.33 33 weeks gestation of pregnancy
CPT/HCPCS: 99283

== ENCOUNTER 2018-11-08 14:03 | Outpatient (CLI) | payer MEDICAID ==
[~2018-11-08] VITALS: Ht 162.6 cm; Wt 90.7 kg
[~2018-11-08 14:03] MED LIST changes: -AMOXICILLIN 500 MG (POLYMOX) CAP PO STA; -RX-HYDROCODONE/APAP 5/325 MG #4 TAB PK PO PRN
[2018-11-08] MEDS ORDERED: POLY17PO6 PO (14:17)
[2018-11-08] MEDS ORDERED: PREN-102 PO (14:17)
[2018-11-08 14:19] VITALS: BP 116/69
== END 2018-11-08 16:06 | disposition home or self-care (01) ==
LOC: PREOP 14:03
PROVIDERS: ATTEND Obstetrics & Gynecology
DX: Z01.818 Encounter for other preprocedural examination (principal)
CPT/HCPCS: 87081

== ENCOUNTER 2018-11-15 03:19 | Inpatient (IN) | payer MEDICAID ==
[2018-11-15] VITALS (14 sets, daily range): BP systolic 96–130; BP diastolic 54–91
[~2018-11-15] VITALS: Ht 162.6 cm; Wt 90.3 kg
[~2018-11-15 03:19] MED LIST changes: +POLY17PO6 PO; +PREN-102 PO
--- NOTE | 2018-11-15 07:54 | NUR ---
MANUELITO SHIELDS presented to unit via ambulation, accompanied by and son, for scheduled repeat c/s. Pt. weighed, gowned, voided, and to bed. Pt. oriented to bed controls, call light, TV, heat, and A/C controls.
--- NOTE | 2018-11-15 08:00 | NUR ---
EFM and GENTRYO applied. admission paperwork completed.
[2018-11-15] MEDS ORDERED: ceFAZolin 2 GM IV Premixed 50 ML IV ONE ×2 (08:45→10:45)
[2018-11-15] MEDS ORDERED: FAMOTIDINE 20MG/2ML IV (PEPCID) IV ONE (08:45)
[2018-11-15] MEDS ORDERED: CITRIC ACID/SOB CIT (BICITRA) 30 ML UDC PO ONE (08:45)
[2018-11-15] MEDS ORDERED: LACTATED RINGERS 1,000 ML IV ONE (08:45)
[2018-11-15] MEDS ORDERED: METOCLOPRAMIDE INJ 10 MG/2 ML (REGLAN) IV ONE (08:45)
[2018-11-15] MEDS: LACTATED RINGERS 1,000 ML IV PRN ×3 (09:19→12:37)
--- NOTE | 2018-11-15 09:19 | NUR ---
#20g IV to Rt. AC x5 total attempts. 3 unsuccessful attempts by this RN. 2 attempts by Belle RN- 1 unsuccessful & 1 successful. admission labs collected from IV site prior to LR bolus infusing w/o via gravity.
[2018-11-15 09:28] LABS: BASOPHILS % (AUTO) 0 % (0-10); EOSINOPHILS # (AUTO) 0.1 10^3/uL (0.0-0.3); EOSINOPHILS % (AUTO) 1 % (0-10); HEMATOCRIT 38 % (35-52); HEMOGLOBIN 12.4 G/DL (11.5-16.0); LYMPHOCYTES # (AUTO) 2.2 X 10^3 (1.0-4.0); LYMPHOCYTES % (AUTO) 27 % (12-44); MEAN CORPUSCULAR HEMOGLOBIN 26 PG (25-34); MEAN CORPUSCULAR HGB CONC 33 G/DL (32-36); MEAN CORPUSCULAR VOLUME 77 FL (80-99); MEAN PLATELET VOLUME 11.1 FL (7.4-10.4); MONOCYTES # (AUTO) 0.6 X 10^3 (0.0-1.0); MONOCYTES % (AUTO) 7 % (0-12); NEUTROPHILS # (AUTO) 5.4 X 10^3 (1.8-7.8); NEUTROPHILS % (AUTO) 65 % (42-75); PLATELET COUNT 220 10^3/uL (130-400); RED CELL DISTRIBUTION WIDTH 14.1 % (10.0-14.5); WHITE BLOOD COUNT 8.3 10^3/uL (4.3-11.0)
[2018-11-15 09:32] LABS: BILIRUBIN,URINE NEGATIVE (NEGATIVE); CLARITY,URINE CLEAR; COLOR,URINE YELLOW; GLUCOSE, URINE (UA) NEGATIVE (NEGATIVE); KETONES,URINE NEGATIVE (NEGATIVE); LEUKOCYTE ESTERASE ,URINE 2+ (NEGATIVE); NITRITE,URINE NEGATIVE (NEGATIVE); PH,URINE 7 (5-9); PROTEIN,URINE NEGATIVE (NEGATIVE); UROBILINOGEN,URINE NORMAL (NORMAL)
[2018-11-15 09:41] LABS: AMORPHOUS SEDIMENT,UR RARE AMOR PHOSPHATE /LPF; BACTERIA,URINE TRACE /HPF
--- NOTE | 2018-11-15 12:01 | History & Physical-OB ---
OB - Chief Complaint & HPI Date/Time Date of Admission: Date of Admission: Nov 15, 2018 at 08:00 Date seen by a Provider: Nov 15, 2018 Time Seen by a Provider: 11:50 Chief Complaint/History OB-Reason for Admission/Chief: Section Hx : 2 Hx Para: 1 Expected Date of Delivery: Nov 22, 2018 Gestational Age in Weeks: 39 Gestational Age in Days: 0 Indication for : desires repeat Admission Nurse Assessment Rev: Yes Allergies and Home Medications Allergies Coded Allergies: No Known Drug Allergies (Unverified , 11/08/18) Home Medications Polyethylene Glycol 3350 17 Gm Powd.pack, 17 GM PO DAILY PRN for CONSTIPATION- 1ST LINE, (Reported) Vits #93/Iron Fum/FA 1 Each Tablet, 1 EACH PO DAILY, (Reported) Patient Home Medication List Home Medication List Reviewed: Yes OB - History Hx of Present Care: Yes Ultrasounds: Normal mid trimester US Obstetrical Complications: None Medical Complications: None Delivery History Hx Blood Disorders: No Adverse Rxn to Tranfusion: No (N/A) Patient Past Medical History Asthma IBS GERD PSH: cholecystectomy Social History/Family History HIV/AIDS: No Sexually Transmitted Disease: No Alcohol Use: Denies Use Recreational Drug Use: No Immunizations Tetanus Booster (TDap): Less than 5yrs Date of Influenza Vaccine: Jun 20, 2018 OB - Admission Exam Physical Exam Vitals: Vital Signs 11/15/18 11/15/18 08:00 10:10 Temp 97.5 Pulse 84 Resp 18 B/P (MAP) 109/64 (79) Pulse Ox 99 O2 Delivery Room Air HEENT: NCAT Heart: Rhythm Normal Lungs: Clear Abdomen: Gravid Extremities: Normal Reflexes: Normal Membranes: Intact Heart Rate: 130's Accelerations: Accelerations Present Decelerations: No Decelerations Short Term Variability: Present Filter Tip Inspector Variability: Average (6-25) Contractions on Admission: >10 Minutes Apart Labs Laboratory Tests Test 11/15/18 08:30 11/15/18 09:18 Range/Units Urine Color YELLOW Urine Clarity CLEAR Urine pH 7 5-9 Urine Specific [place] 1.010 L 1.016-1.022 Urine Protein NEGATIVE NEGATIVE Urine Glucose (UA) NEGATIVE NEGATIVE Urine Ketones NEGATIVE NEGATIVE Urine Nitrite NEGATIVE NEGATIVE Urine Bilirubin NEGATIVE NEGATIVE Urine Urobilinogen NORMAL NORMAL MG/DL Urine Leukocyte Esterase 2+ H NEGATIVE Urine RBC (Auto) NEGATIVE NEGATIVE Urine RBC NONE /HPF Urine WBC 5-10 H /HPF Urine Renal Epithelial Cells 5-10 /HPF Urine Crystals PRESENT H /LPF Urine Amorphous Sediment RARE SALONI PHOSPHATE H /LPF Urine Bacteria TRACE /HPF Urine Casts NONE /LPF Urine Mucus SMALL H /LPF Urine Culture Indicated YES White Blood Count 8.3 4.3-11.0 10^3/uL Red Blood Count 4.85 4.35-5.85 10^6/uL Hemoglobin 12.4 11.5-16.0 G/DL Hematocrit 38 35-52 % Mean Corpuscular Volume 77 L 80-99 FL Mean Corpuscular Hemoglobin 26 25-34 PG Mean Corpuscular Hemoglobin Concent 33 32-36 G/DL Red Cell Distribution Width 14.1 10.0-14.5 % Platelet Count 220 130-400 10^3/uL Mean Platelet Volume 11.1 H 7.4-10.4 FL Neutrophils (%) (Auto) 65 42-75 % Lymphocytes (%) (Auto) 27 12-44 % Monocytes (%) (Auto) 7 0-12 % Eosinophils (%) (Auto) 1 0-10 % Basophils (%) (Auto) 0 0-10 % Neutrophils # (Auto) 5.4 1.8-7.8 X 10^3 Lymphocytes # (Auto) 2.2 1.0-4.0 X 10^3 Monocytes # (Auto) 0.6 0.0-1.0 X 10^3 Eosinophils # (Auto) 0.1 0.0-0.3 10^3/uL Basophils # (Auto) 0.0 0.0-0.1 10^3/uL OB - Assessment/Plan/Diagnosis Assessment Assessment: section Admission Dx 39 week IUP Previous section Admission Status: Inpatient Order (span 2 midnights) Reason for Inpatient Admission: Repeat cesareean Plan Plan: Section AZIZA SOLORZANO DO Nov 15, 2018 12:01
[2018-11-15] MEDS ORDERED: OXYTOCIN/NORMAL SALINE 500 ML IV ONE (12:02)
[2018-11-15] MEDS ORDERED: ONDANSETRON 4 MG/2 ML (SDV) Z0FRAN ONE (12:02)
[2018-11-15] MEDS ORDERED: fentaNYL INJECTION 100 MCG/2 ML AMP ONE (12:03)
--- NOTE | 2018-11-15 12:07 | NUR ---
monitors dc'd. pt ambulated to OB c/s room with OR staff @ side. pt stable
--- NOTE | 2018-11-15 12:10 | Discharge Inst-Women's Service ---
Discharge Inst-Women's Serv Depart Medication/Instructions New, Converted or Re-Newed RX: RX on Chart Final Diagnosis POD 2 RLTCS Consults/Follow Up Additional Follow Up: Yes Orders/Referrals Dr. Dueñas in 7-[address] Calles in 6 weeks Activity Activity: Activity as Tolerated Driving Instructions: No Driving for 1 Week NO SMOKING: NO SMOKING Nothing Inside Vagina: No Douching, No [place], No Tampons Diet Discharge Diet: No Restrictions Symptoms to Report to : Bleeding Excessive, Pain Increased, Vaginal Bleeding Increase, Questions/Concerns For Any Problems or Questions: Contact Your Physician Skin/Wound Care Infection Signs and Symptoms: Increased Redness, Foul Odor of Wound, Increased Drainage, Skin Itchy or Has a Rash Stitches/Maria G/Dermabond: Dermabond, Care of Stitches Bathing Instructions: AZIZA Enrique DO Nov 15, 2018 12:10
[2018-11-15] MEDS ORDERED: DOCU100C37 PO (12:12)
[2018-11-15] MEDS ORDERED: ACHD5005 PO (12:12)
[2018-11-15] MEDS ORDERED: IBUP-844 PO (12:12)
[2018-11-15] MEDS ORDERED: HYDROmorphone 2 MG/ML VIAL (DILAUDID) IV PRN (12:15)
[2018-11-15] MEDS ORDERED: TETANUS,DIPTH,PERTUSS P/F (BOOSTRIX) 0.5 ML VIAL IM SCH (12:15)
[2018-11-15] MEDS ORDERED: ONDANSETRON 4 MG/2 ML (SDV) Z0FRAN IVP PRN (12:15)
[2018-11-15] MEDS ORDERED: MEASLES,MUMPS,RUBELLA 1 EA INJ SC SCH (12:15)
[2018-11-15] MEDS ORDERED: LIDOCAINE PF 2% 5 ML (XYLOCAINE) VIAL ONE (12:44)
[2018-11-15] MEDS ORDERED: BUPIVACAINE SPINAL 0.75% (SENSORCAINE) 2 ML AMP ONE (12:49)
[2018-11-15] MEDS ORDERED: KETOROLAC 30 MG/ML VIAL ONE (12:59)
[2018-11-15] MEDS: KETOROLAC 30 MG/ML VIAL IVP SCH ×2 (13:01→18:34)
[2018-11-15] MEDS ORDERED: BUPIVACAINE 0.25% 30 ML (SENSORCAINE) VIAL ONE (13:01)
--- NOTE | 2018-11-15 14:24 | NUR ---
FFu/1. small clot expressed. lt rubra noted. breonna-care offered. v-pad in place.
[2018-11-15] MEDS: OXYTOCIN/NORMAL SALINE 500 ML IV SCH ×2 (14:30→18:34)
--- NOTE | 2018-11-15 14:30 | NUR ---
pt transferred to room 313 via bed with this RN @ side. call light with in reach. denies c/o's @ side. family members present.
--- NOTE | 2018-11-15 15:25 | NUR ---
hand catheter dc'd per Dr's orders. 700cc clear, yellow urine noted in chamber. FFu/1. lt rubra noted. breonna-care offered. v-pad and panties in place. pt tolerated well.
--- NOTE | 2018-11-15 17:09 | OPERATIVE REPORT ---
DATE OF SERVICE: 11/15/2018 PREOPERATIVE DIAGNOSES: 1. A 23-year-old G2, P1 at 39 weeks gestation. 2. Previous section. POSTOPERATIVE DIAGNOSES: 1. A 23-year-old G2, P1 at 39 weeks gestation. 2. Previous section. PROCEDURE: Repeat low transverse section. SURGEON: Wade Dueñas DO PLASTIC SURGERY COORDINATOR: Tatianna Kwok RN ANESTHESIA: Spinal. ESTIMATED BLOOD LOSS: 500 mL. URINE OUTPUT: 30 mL clear at the end of the procedure. FLUIDS: 1500 mL lactated Ringer solution. FINDINGS: A live female weighing 8 pounds 13 ounces, Apgars of 6 and 8, grossly normal appearing uterus, bilateral fallopian tubes and ovaries. INDICATION FOR PROCEDURE: This 23-year-old female patient is a consultation to me from Dr. Sasha Calles at the [facility] for repeat . Her care was at the [facility]. At the preoperative consultation, the patient did have some questions about , who after further discussion and review of her chart, we discussed that repeat would be a better idea for her. Risks of the procedure were discussed with the patient in detail including risks of bleeding, infection, damage to surrounding structures including, but not limited to bowel, bladder, ureter, kidneys, possible need for reoperation, postoperative complications, possible risk from anesthesia risk and possible need for blood transfusion and even . Everything was discussed with the patient and consent was obtained in the preoperative area and the patient was taken to the operating room. OPERATIVE REPORT IN DETAIL: Once in the operating room, spinal anesthesia was found to be adequate. She was placed in supine position with leftward tilt, prepped and draped in normal sterile fashion. A timeout was performed and anesthesia was tested. I then proceeded to make a Pfannenstiel skin incision on the bottom margin of the previously existing scar. I then go over the top margin of the scar excising the previous incisional scar, which formed a large keloid. I then proceeded with my incision until using Bovie cautery until fascia was encountered, at which point, I extended the fascial incision laterally and superiorly using the Bovie cautery. The superior aspect of fascial incision was then grasped with Vicenta clamps, tented upward and dissected off the underlying rectus muscle. The inferior aspect of the fascial incision was then grasped with Vicenta clamps, tented upward and dissected off the underlying rectus muscles. Rectus muscle was then dissected down the midline using Lawson scissors, which exposed the peritoneum, which I entered bluntly and extended using blunt traction. An Te ring retractor was placed in the peritoneal incision, which offered excellent lateral sidewall retraction. I then I am able to identify the lower uterine segment, which was thinned out. I made a low transverse incision to the vesicouterine peritoneum and bluntly dissected this off the lower uterine segment. I proceeded with my myotomy until membranes were visualized, at which point, I extended the uterine incision laterally and superiorly using bandage scissors. Amniotomy was performed using Allis clamp. Clear fluid was noted. The infant was found in the vertex presentation. With gentle fundal pressure, the infant's head was delivered through the incision where the nares and oropharynx were bulb suctioned. Anterior and posterior shoulders were delivered and the was then brought to the operative field with the cord doubly clamped and cut. Infant was handed off to the nurses and Dr. Calles, who was present for delivery. Cord blood was collected. Three-vessel cord was intact. Placenta was delivered spontaneously thereafter. IV Pitocin was initiated to facilitate uterine contraction. Uterine fundus became firmer with bimanual massage. The uterus was then exteriorized and cleared of all endometrial clots and debris. I then proceeded to closing the uterine incision using 0 Vicryl suture in a running locked fashion. Second layer of imbricating 0 Monocryl was placed. Excellent hemostasis was noted after doing this. I then placed the uterus back in the pelvis and copiously irrigated the pelvis using normal saline. Once again, there was no active bleeding noted from any of my dissection planes. I placed Interceed antiadhesive over my low transverse incision. I then proceeded with closing the peritoneum using 3-0 Vicryl suture in a running fashion. The rectus muscles were reapproximated using 3-0 Vicryl suture in interrupted fashion. The fascia was reapproximated using 0 Vicryl suture in a running fashion. Subcutaneous tissue was reapproximated using a 3-0 plain interrupted subcutaneous stitch and the skin was reapproximated using 4-0 Monocryl running subcuticular. Dermabond was applied to the incision and sterile dressing with adhesive white tape. The patient tolerated the procedure well and was taken to the recovery area in stable condition. Lap and sponge count was correct at the end of the procedure. The instrument counts were correct as well. Two grams of Ancef was given preoperatively for infection prophylaxis. Job ID: [id number] DocumentID: [id number] Dictated Date: 11/15/2018 13:11:07 Road Commissioner Date: 11/15/2018 17:08:34 Dictated By: WADE DUEÑAS DO
--- NOTE | 2018-11-15 17:40 | NUR ---
assisted pt up to BR. voided 200cc urine without difficulty. breonna-care offered. lt rubra noted on v-pad. new v-pad and panties applied.
[2018-11-15] MEDS: HYDROcodone/APAP 5 MG/325 MG (LORTAB) TAB PO PRN (17:51)
[2018-11-15] MEDS: CATHETER FLUSH 10 ML SYR IV SCH ×2 (17:51→18:34)
--- NOTE | 2018-11-15 19:15 | NUR ---
report given to Tammy RN
[2018-11-15] MEDS: DOCUSATE SODIUM 100 MG (COLACE) CAP PO SCH (22:00)
[2018-11-16] MEDS: KETOROLAC 30 MG/ML VIAL IVP SCH ×2 (00:41→06:20)
[2018-11-16 02:16] VITALS: BP 113/65
--- NOTE | 2018-11-16 06:01 | Postpartum Progress Note ---
Note Note Day # 1 Subjective: Patient is without complaints. Ambulating, voiding. Tolerating a regular diet without nausea or vomiting. Normal lochia. Pain is well controlled with oral pain medications. Objective: Physical Exam: General - Alert and oriented, no apparent distress Abdomen - Soft, appropriately tender to palpation, non-distended, fundus firm at umbilicus Extremities - no edema, negative Delfino's bilaterally Incision- c/d/i Assessment: POD 1 RLTCS Plan: Routine care. Encourage breast feeding. Encourage ambulation. Ferrous sulfate supplementation. Plan for discharge tomorrow Vitals - Labs Vital Signs - I&O Vital Signs Date Time Temp Pulse Resp B/P (MAP) Pulse Ox O2 Delivery O2 Flow Rate FiO2 11/16/18 02:16 97.8 82 18 113/65 (81) 97 Room Air 11/15/18 22:00 97.4 87 18 96/65 (75) 97 Room Air 11/15/18 17:45 97.9 90 18 120/64 (82) 98 Room Air 11/15/18 14:14 96.7 64 18 114/67 (83) 98 Room Air 11/15/18 13:58 96.8 67 17 109/91 (97) 100 Room Air 11/15/18 13:41 97.0 69 17 118/63 (81) 100 Room Air 11/15/18 13:26 97.0 75 18 130/87 (101) 100 Room Air 11/15/18 12:00 112 18 104/54 (71) Room Air 11/15/18 11:45 89 18 109/64 (79) Room Air 11/15/18 11:30 90 18 109/63 (78) Room Air 11/15/18 10:10 84 18 109/64 (79) Room Air 11/15/18 09:55 81 18 111/55 (73) Room Air 11/15/18 09:40 80 18 102/60 (74) Room Air 11/15/18 09:30 75 18 99/54 (69) Room Air 11/15/18 08:00 97.5 108 18 108/68 (81) 99 Room Air I & O 11/16/18 07:00 Intake Total 3450 ml Output Total 1430 ml Balance 2020 ml Labs Laboratory Tests 11/15/18 08:30: Urine Color YELLOW, Urine Clarity CLEAR, Urine pH 7, Urine Specific Cedar 1.010L, Urine Protein NEGATIVE, Urine Glucose (UA) NEGATIVE, Urine Ketones NEGATIVE, Urine Nitrite NEGATIVE, Urine Bilirubin NEGATIVE, Urine Urobilinogen NORMAL, Urine Leukocyte Esterase 2+H, Urine RBC (Auto) NEGATIVE, Urine RBC NONE , Urine WBC 5-10H, Urine Renal Epithelial Cells 5-10, Urine Crystals PRESENTH, Urine Amorphous Sediment RARE SALONI PHOSPHATEH, Urine Bacteria TRACE, Urine Casts NONE, Urine Mucus SMALLH, Urine Culture Indicated YES 11/15/18 09:18: White Blood Count 8.3, Red Blood Count 4.85, Hemoglobin 12.4, Hematocrit 38, Mean Corpuscular Volume 77L, Mean Corpuscular Hemoglobin 26, Mean Corpuscular Hemoglobin Concent 33, Red Cell Distribution Width 14.1, Platelet Count 220, Mean Platelet Volume 11.1H, Neutrophils (%) (Auto) 65, Lymphocytes (%) (Auto) 27 , Monocytes (%) (Auto) 7, Eosinophils (%) (Auto) 1, Basophils (%) (Auto) 0, Neutrophils # (Auto) 5.4, Lymphocytes # (Auto) 2.2, Monocytes # (Auto) 0.6, Eosinophils # (Auto) 0.1, Basophils # (Auto) 0.0 AZIZA SOLORZANO DO Nov 16, 2018 06:01
[2018-11-16 06:20] VITALS: BP 119/78
[2018-11-16] MEDS: CATHETER FLUSH 10 ML SYR IV SCH (06:20)
[2018-11-16 06:45] LABS: BASOPHILS % (AUTO) 0 % (0-10); EOSINOPHILS # (AUTO) 0.1 10^3/uL (0.0-0.3); EOSINOPHILS % (AUTO) 1 % (0-10); HEMATOCRIT 33 % (35-52); HEMOGLOBIN 10.7 G/DL (11.5-16.0); LYMPHOCYTES # (AUTO) 1.6 X 10^3 (1.0-4.0); LYMPHOCYTES % (AUTO) 14 % (12-44); MEAN CORPUSCULAR HEMOGLOBIN 25 PG (25-34); MEAN CORPUSCULAR HGB CONC 33 G/DL (32-36); MEAN CORPUSCULAR VOLUME 77 FL (80-99); MEAN PLATELET VOLUME 10.5 FL (7.4-10.4); MONOCYTES # (AUTO) 0.7 X 10^3 (0.0-1.0); MONOCYTES % (AUTO) 6 % (0-12); NEUTROPHILS # (AUTO) 8.8 X 10^3 (1.8-7.8); NEUTROPHILS % (AUTO) 79 % (42-75); PLATELET COUNT 183 10^3/uL (130-400); RED CELL DISTRIBUTION WIDTH 14.4 % (10.0-14.5); WHITE BLOOD COUNT 11.2 10^3/uL (4.3-11.0)
--- NOTE | 2018-11-16 07:15 | Anesthesia-Regional Post-Op ---
Regional Patient Condition Mental Status: Alert, Oriented x3 Circulation: Same as Pre-Op Headache: Absent Sensation: Full Recovery Motor Block: Absent Post Op Complications Complications None Follow Up Care/Instructions Patient Instructions None needed. Anesthesia/Patient Condition Patient is doing well, no complaints, stable vital signs, no apparent adverse anesthesia problems. No complications reported per nursing. JULIO C ZAPATA CRNA Nov 16, 2018 07:15
[2018-11-16 08:15] VITALS: BP 115/67
[2018-11-16] MEDS: DOCUSATE SODIUM 100 MG (COLACE) CAP PO SCH ×2 (08:16→21:00)
--- NOTE | 2018-11-16 08:20 | NUR ---
PT IN BED, S/O IN THE BED WITH PT. VS OBTAINED. SCHEDULED COLACE GIVEN PO; SEE EMAR FOR FURTHER. INITIAL SHIFT ASSESSMENT COMPLETED; SEE INTERVENTION FOR FURTHER. PT PREPPING TO SLEEP SOME MORE, DENIES ANY NEEDS. CALL LIGHT WITHIN REACH.
--- NOTE | 2018-11-16 10:26 | NUR ---
Notified Dr. Calles of nipple pain; Order received per phone for topical all purpose nipple ointment
[2018-11-16] MEDS ORDERED: ALL PURPOSE NIPPLE OINTMENT 45 GM JAR TOP SCH (11:00)
[2018-11-16] MEDS ORDERED: MICONAZOLE TOP PRN ×3 (11:15)
[2018-11-16] MEDS ORDERED: MUPIROCIN TOP PRN ×3 (11:15)
[2018-11-16] MEDS ORDERED: BETAMETHASONE VAL 0.1% TOP PRN ×3 (11:15)
[2018-11-16 12:24] VITALS: BP 123/67
[2018-11-16] MEDS: IBUPROFEN 600 MG (MOTRIN) TAB PO SCH ×3 (12:28→23:33)
--- NOTE | 2018-11-16 12:45 | NUR ---
PT IN BED. VS OBTAINED. IV DC'D, CATHETER TIP INTACT. SITE CLEAR. GAUZE AND BAND AID APPLIED OVER SITE. ROUTINE MOTRIN GIVEN PO; SEE EMAR FOR FURTHER. SHOWER SET UP. 500 ML OF URINE OUTPUT EMPTIED FROM PT'S HAT. NIPPLE OINTMENT TO PT'S BEDSIDE. LIGHTS TURNED OUT PER REQUEST. CALL LIGHT WITHIN REACH.
[2018-11-16] MEDS: HYDROcodone/APAP 5 MG/325 MG (LORTAB) TAB PO PRN ×2 (13:45→23:34)
--- NOTE | 2018-11-16 15:23 | NUR ---
PT IN BED, HOLDING . DENIES ANY NEEDS AT THIS TIME.
[2018-11-16 18:31] VITALS: BP 113/62
--- NOTE | 2018-11-16 18:32 | NUR ---
PT IN BED, . VS OBTAINED. ROUTINE MOTRIN GIVEN PO; SEE EMAR FOR FURTHER. PT DENIES ANY FURTHER NEEDS AT THIS TIME.
[2018-11-17] VITALS: BP 118/59
[2018-11-17 05:54] VITALS: BP 127/83
[2018-11-17] MEDS: IBUPROFEN 600 MG (MOTRIN) TAB PO SCH ×2 (05:54→12:20)
[2018-11-17 08:03] VITALS: BP 114/64
--- NOTE | 2018-11-17 08:33 | Postpartum Progress Note ---
Note Note Day # 2 Subjective: Patient is without complaints. Ambulating, voiding. Tolerating a regular diet without nausea or vomiting. Normal lochia. Pain is well controlled with oral pain medications. Objective: Physical Exam: General - Alert and oriented, no apparent distress Abdomen - Soft, appropriately tender to palpation, non-distended, fundus firm at umbilicus Extremities - no edema, negative Delfino's bilaterally Incision- c/d/i ASSESSMENT: POD 2 RLTCS Acute blood loss anemia Plan: Routine care. Encourage breast feeding. Encourage ambulation. Ferrous sulfate supplementation. Plan for discharge today Vitals - Labs Vital Signs - I&O Vital Signs Date Time Temp Pulse Resp B/P (MAP) Pulse Ox O2 Delivery O2 Flow Rate FiO2 11/17/18 08:03 98.0 69 18 114/64 (81) 98 Room Air 11/17/18 05:54 98.3 75 18 127/83 (98) 98 Room Air 11/17/18 00:00 98.2 69 18 118/59 (78) 97 Room Air 11/16/18 18:31 98.0 75 18 113/62 (79) 98 Room Air 11/16/18 12:24 98.2 69 18 123/67 (85) 96 Room Air I & O 11/17/18 07:00 Output Total 900 ml Balance -900 ml Labs Microbiology 11/15/18 Urine Culture - Final, Complete NO GROWTH AZIZA SOLORZANO DO Nov 17, 2018 08:33
--- NOTE | 2018-11-17 09:15 | NUR ---
Dr Dueñas to room to see pt. D/C orders rec'd.
[2018-11-17 09:38] VITALS: BP 109/58
[2018-11-17] MEDS: DOCUSATE SODIUM 100 MG (COLACE) CAP PO SCH (09:39)
[2018-11-17 12:19] VITALS: BP 119/67
--- NOTE | 2018-11-17 12:30 | NUR ---
Dr Dueñas notified that infant is staying. Cont. with D/C to boarder status.
--- NOTE | 2018-11-17 13:50 | NUR ---
Prescriptions given to pt at this time to fill prior to boardering. Pt educated on boarder status. No questions or concerns at this time.
--- NOTE | 2018-11-17 17:00 | NUR ---
To room to discuss discharge instructions, pt starting to breastfeed at this time, requests to do instructions after feed.
--- NOTE | 2018-11-17 18:10 | NUR ---
Discharge instructions explained to pt with copy provided to pt. Pt verbalizes understanding, denies questions or concerns at this time. Explained boarder status, MOB verbalizes understanding. Pt to remain in room 313 as boarder parent.
== END 2018-11-17 18:10 | disposition home or self-care (01) | DRG 787 ==
LOC: LDRP 08:00
PROVIDERS: ADMIT Obstetrics & Gynecology; ATTEND Obstetrics & Gynecology
PROC: 10D00Z1 Extraction of Products of Conception, Low, Open Approach (ICD-10-PCS; principal; 2018-11-15 12:11)
DX: O34.211 Maternal care for low transverse scar from previous cesarean delivery (principal); O90.81 Anemia of the puerperium; D62 Acute posthemorrhagic anemia; O99.52 Diseases of the respiratory system complicating childbirth; J45.909 Unspecified asthma, uncomplicated; O99.62 Diseases of the digestive system complicating childbirth; K21.9 Gastro-esophageal reflux disease without esophagitis; K58.9 Irritable bowel syndrome, unspecified; Z3A.39 39 weeks gestation of pregnancy; Z37.0 Single live birth
CPT/HCPCS: 36415; 81000; 85025; 86850; 86900; 86901; 87088; 94664